=== PATIENT | male | born 1985 | race African-American/Black ===

== ENCOUNTER 2020-07-16 17:23 | Emergency (ER) | payer OTHER, SELFPAY ==
--- NOTE | 2020-07-16 17:28 | ED.GENADULT ---
HPI - General Adult General Chief complaint: Skin/Abscess/Foreign Body Stated complaint: Boil under arm Time Seen by Provider: 07/16/20 17:28 Source: patient Mode of arrival: ambulatory Limitations: no limitations History of Present Illness HPI narrative: 35-year-old male patient presents to the [facility] with complaints of a wound under the left arm for the past 3 to 4 days. Patient states he denies any fevers but states he has had some chills. Patient states that there has been some drainage from the site but does not know what color. Patient states he took 2 antibiotics this morning for pain but states he does not know what they are was given to him by his mother. Patient states he has also been taking NyQuil for pain. Related Data Allergies Allergy/AdvReac Type Severity Reaction Status Date / Time aspirin Allergy Unknown Unknown Verified 01/29/19 08:54 Review of Systems Review of Systems: Narrative: CONSTITUTIONAL: Denies fever, chills, or sweats. EYES: Denies visual changes, redness, or discharge. ENT: Denies rhinorrhea, congestion, sore throat, or otalgia. CARDIOVASCULAR: Denies chest pain, palpitations, or edema. RESPIRATORY: Denies cough or dyspnea. GASTROINTESTINAL: Denies abdominal pain, nausea, vomiting, or diarrhea. GENITOURINARY: Denies dysuria or hematuria. SKIN: Denies rash or itching. Positive wound to left underarm x3 to 4 days MUSCULOSKELETAL: Denies back pain, joint pain, or myalgia. NEUROLOGIC: Denies headache, numbness, or weakness. PSYCHIATRIC: Denies anxiety or depression. [facility] Past Medical History Medical History (Updated 07/16/20 @ 18:07 by ELTON Lopez) Asthma Musculoskeletal disorder Broken right middle finger ronnie placed Pneumonia Seizures Social History Social History Smoking status: Current every day smoker Alcohol intake: current Comments At the time of my signature I agree with nursing past medical history, surgical, social, and family history. There is no relevant family history pertinent to the presenting complaint. Exam Narrative: Exam Narrative: GENERAL: Well-appearing, well-nourished, and in no acute distress. HEAD: Normocephalic, atraumatic. EYES: PERRLA and EOMI. ENT: Nares clear, no rhinorrhea or epistaxis. Mucous membranes moist. NECK: Supple. No lymphadenopathy CHEST: Clear to auscultation. No respiratory distress. HEART: Regular rate and rhythm. No murmur heard. Normal peripheral pulses. ABDOMEN: Soft, nontender, nondistended, normal active bowel sounds. EXTREMITIES: Normal range of motion. No edema. SKIN: Warm, dry, no rash. Patient has small 0.5 x 0.5 cm open area with dried drainage present under the left axilla. There is some slight surrounding erythema and slight swelling present. No warmth noted. NEURO: No focal deficits. Alert and oriented x3. Course Vital Signs Vital signs: Vital Signs Temperature 36.2 C L 07/16/20 17:39 Pulse Rate 84 07/16/20 17:39 Respiratory Rate 18 07/16/20 17:39 Blood Pressure 119/83 07/16/20 17:39 Pulse Oximetry 99 07/16/20 17:39 Temperature 36.2 C L 07/16/20 17:39 Pulse Rate 84 07/16/20 17:39 Respiratory Rate 18 07/16/20 17:39 Blood Pressure 119/83 07/16/20 17:39 Pulse Oximetry 99 07/16/20 17:39 Vital signs reviewed Medical Decision Making Differential Diagnosis Differential Diagnosis: Differential diagnosis: Abscess, cellulitis, hidradenitis, laceration, puncture wound. Notify patient that it does appear that he has had an abscess under this arm but it does appear to be open and drainage right now which is good. Discussed with patient that he can continue the warm compresses that he has been using and I will go ahead and put him on an antibiotic as well as a topical antibiotic. Discussed with him he can take Tylenol or ibuprofen as needed for pain. Discussed with patient he needs to clean the area with soap and water and pat
[2020-07-16 17:39] VITALS: BP 119/83; PULSE 84; RESP 18; TEMP 36.2; O2SAT 99
== END 2020-07-16 18:09 | disposition home or self-care (01) ==
PROVIDERS: Emergency Provider Nurse Practitioner Family; PCP Internal Medicine
DX: L02.412 Cutaneous abscess of left axilla (principal); L03.112 Cellulitis of left axilla; F17.200 Nicotine dependence, unspecified, uncomplicated; J45.909 Unspecified asthma, uncomplicated
CPT/HCPCS: 99213; G0463

== ENCOUNTER 2020-08-07 13:38 | Outpatient (CLI) | payer OTHER, SELFPAY ==
[2020-08-07 14:10] LABS: Hematocrit 43.9 % (42.0-52.0); Hemoglobin 15.4 g/dL (14.0-18.0); Mean Corpuscular HGB Conc 35.1 g/dl (32-36); Mean Corpuscular Hemoglobin 31.6 pg (26-34); Mean Platelet Volume 9.9 fl (7.4-10.4); Platelet Count Result 45 k/mm3 (150-375); Red Blood Count 4.88 M/mm3 (4.6-6.20); Red Cell Distribution Width 15.7 % (11.5-14.5); White Blood Count 7.7 K/mm3 (4.5-10.0)
[2020-08-07 14:21] LABS: Alanine Aminotransferase 129 U/L (4-50); Albumin Level 4.4 g/dL (3.5-5.1); Alkaline Phosphatase 129 U/L (38-126); Anion Gap 9 mmol/L (8-16); Aspartate Amino Transferase 193 U/L (17-59); Bilirubin,Total 0.6 mg/dL (0.2-1.3); Calcium 8.7 mg/dL (8.4-10.2); Carbon Dioxide 28 mmol/L (22-30); Chloride 99 mmol/L (98-107); Cholesterol 196 mg/dL (0-200); Estimated Glomerular Filt Rate > 60; Glucose 101 mg/dL (75-110); HDL Direct 102 mg/dL; Potassium 4.3 mmol/L (3.4-5.0); Sodium 136 mmol/L (137-145); Triglycerides 75 mg/dL (<150)
[2020-08-07 14:32] LABS: LDL Cholesterol Direct 64 mg/dL
[2020-08-07 14:35] LABS: Basophils Absolute Manual 0.15 K/mm3 (0.0-0.1); Basophils Percent Manual 2 % (0-1); Lymphocytes Absolute Manual 2.77 K/mm3 (1.1-4.5); Monocytes Percent Manual 4 % (3-9); Neutrophils Percent Manual 58 % (46-73); Total Cells Counted 100
[2020-08-07 14:36] LABS: Platelet Estimate Decreased (Adequate)
[2020-08-07 15:12] LABS: Iron 86 ug/dL (49-181)
[2020-08-07 15:21] LABS: Percent Iron Saturation 31 % (20-50)
[2020-08-07 17:50] LABS: Blood Urea Nitrogen < 2 mg/dL (9-20)
== END 2020-08-07 13:39 | disposition home or self-care (01) ==
PROVIDERS: PCP Internal Medicine; Visit Provider Internal Medicine
DX: G62.1 Alcoholic polyneuropathy (principal); Z13.220 Encounter for screening for lipoid disorders; Z13.6 Encounter for screening for cardiovascular disorders; D64.9 Anemia, unspecified
CPT/HCPCS: 36415; 80053; 80061; 83540; 83550; 85025; 85055

== ENCOUNTER 2020-10-11 14:58 | Emergency (ER) | payer OTHER, SELFPAY ==
--- NOTE | ~2020-10-11 | XR_ITS ---
XR knee LT min 4V 10/11/2020 15:42 INDICATION: Left knee pain PROCEDURE: 4 views left knee COMPARISON: No prior studies for comparison. FINDINGS: Fracture, dislocation or subluxation is not identified. Mild osteoarthritis of the left kne e. The soft tissues appear within normal limits. No foreign bodies are identified. IMPRESSION: 1: NO ACUTE BONE OR JOINT ABNORMALITY IDENTIFIED. Reviewed, dictated and finalized at location A.
[2020-10-11 15:27] VITALS: BP 152/99; PULSE 95; RESP 16; TEMP 35.8; O2SAT 98
--- NOTE | 2020-10-11 15:33 | ED.LOWEXIN ---
HPI - Extremity Injury (Lower) General Chief Complaint: Extremity Injury, Lower Stated Complaint: fell left knee pain Time Seen by Provider: 10/11/20 15:33 Source: patient Mode of arrival: ambulatory Limitations: no limitations History of Present Illness HPI Narrative: Lamont Lincoln is a 35 yo male with a PMH of alcoholism who fell in his bathroom on Monday night his left knee. Knee pain rated a 10/10 since then he walks says it is very painful he has difficulty fully extending the leg without pain in the patellar tibia area. He has point pain in both the tibial plateau area as well as the lateral and medial patella and knee in general is swollen Related Data Allergies Allergy/AdvReac Type Severity Reaction Status Date / Time aspirin Allergy Mild turn purple Verified 10/11/20 15:01 Review of Systems Review of Systems: Narrative: CONSTITUTIONAL: Denies fever, chills, sweats. EYES: Denies visual changes, redness, discharge. ENT: Denies rhinorrhea, congestion, sore throat, otalgia. CARDIOVASCULAR: Denies chest pain, palpitations, edema. RESPIRATORY: Denies dyspnea, wheezing, cough GASTROINTESTINAL: Denies abdominal pain, nausea, vomiting, diarrhea. GENITOURINARY: Denies dysuria, hematuria, abnormal discharge SKIN: Denies rash or itching. NEUROLOGIC: Denies numbness, or focal weakness. PSYCHIATRIC: Denies anxiety or depression. Left knee pain after fall on Monday [facility] Past Medical History Medical History Abnormal liver enzymes Alcohol abuse Asthma Musculoskeletal disorder Broken right middle finger ronnie placed Pneumonia Seizures Social History Social History Smoking status: Current every day smoker Alcohol intake: current Gender identity (if verbalized by the patient): Male Comments At time of signature, I agree with nursing past medical, surgical, social and family history. There is no relevant family history pertinent to the presenting complaint. Exam Narrative: Exam Narrative: GENERAL: This is a well-nourished, well-developed patient, in moderate distress. HEAD: normocephalic, atraumatic. EYES: Sclera clear/white. Vision is grossly intact. EARS: External ears normal, . Hearing grossly intact. NOSE: External nose normal without nasal discharge, nares without redness, no rhinorrhea. THROAT: Mucous membranes moist, NECK: Neck supple, CARDIOVASCULAR: Regular rate and rhythm without murmurs, gallops, or rubs. RESPIRATORY: Clear to auscultation. Breath sounds equal bilaterally. No wheezes, rales, or rhonchi. GASTROINTESTINAL: Abdomen soft, non-tender, SKIN: warm, intact with no suspicious lesions or rash, good texture and turgor. NEURO: awake, alert, and oriented to person, place and time. There were no obvious focal neurologic abnormalities. Steady gait EXTREMITIES: Normal range of motion. Left knee difficulty with extension and flexion knee is significantly swollen pain is lateral and medial patella with most pain focused at the patellar tibial junction; warm skin 2+ pedal pulse BACK: Nontender without deformity Course Course Emergency Course: Patient comes to [facility] after fall in bathroom on Monday evening hitting his left knee which is bothered him since then X-ray shows No acute fracture dislocation or subluxation he has mild osteoarthritis of the left knee soft tissues appear within normal limits Placed in Neal wrap with knee immobilizer and given ibuprofen Vital Signs Vital signs: Vital Signs Temperature 96.4 F L 10/11/20 15:27 Pulse Rate 95 10/11/20 15:27 Respiratory Rate 16 10/11/20 15:27 Blood Pressure 152/99 H 10/11/20 15:27 Pulse Oximetry 98 10/11/20 15:27 Temperature 96.4 F L 10/11/20 15:27 Pulse Rate 95 10/11/20 15:27 Respiratory Rate 16 10/11/20 15:27 Blood Pressure 152/99 H 10/11/20 15:27 Pulse Oximetry 98 10/11/20 15:27 [facility] - Extrem
== END 2020-10-11 16:10 | disposition home or self-care (01) ==
PROVIDERS: Emergency Provider Nurse Practitioner; PCP Internal Medicine
DX: M25.562 Pain in left knee (principal); F17.200 Nicotine dependence, unspecified, uncomplicated; J45.909 Unspecified asthma, uncomplicated
CPT/HCPCS: 73564; 99213; G0463; L1830

== ENCOUNTER 2020-11-23 13:04 | Emergency (ER) | payer OTHER, SELFPAY ==
--- NOTE | ~2020-11-23 | XR_ITS ---
EXAMINATION: XR chest 1V portable DATE: 11/23/2020 14:50 INDICATION: Cough. Shortness of breath. COVID-19 exposure. TECHNIQUE: A single frontal view of the chest was obtained. COMPARISON: Chest 2 views 08/03/2015 FINDINGS: The chest demonstrates clear lungs without pneumonia, pleural effusion, or pneumothorax. Th e heart size is normal. IMPRESSION: 1. No acute cardiopulmonary disease. Reviewed, dictated and finalized at location A.
[2020-11-23 13:15] VITALS: BP 132/89; PULSE 112; RESP 16; TEMP 36.4; O2SAT 98
[2020-11-23 13:41] VITALS: BP 132/89
[2020-11-23 13:46] VITALS: PULSE 98; RESP 20; TEMP 36.7; O2SAT 99
--- NOTE | 2020-11-23 16:10 | ED.URI ---
HPI - URI/Sore Throat General Chief Complaint: Upper Respiratory Infection Stated Complaint: covid exposure/cough Time Seen by Provider: 11/23/20 14:38 Source: patient Mode of arrival: ambulatory Limitations: no limitations History of Present Illness HPI Narrative: This is a 35 year old male that presents to the ER for cold symptoms x 2 days. Reports cough, congestion, sore throat, nausea and vomiting. Reports worsening of his asthma. Reports a recent exposure to coronavirus. Denies fever or chest pain. Related Data Allergies Allergy/AdvReac Type Severity Reaction Status Date / Time aspirin Allergy Mild turn purple Verified 10/14/20 11:03 Review of Systems Review of Systems: Narrative: CONSTITUTIONAL: Denies fever ENT: Reports rhinorrhea, congestion, sore throat CARDIOVASCULAR: Denies chest pain RESPIRATORY: Reports cough and dyspnea. GASTROINTESTINAL: Reports nausea, vomiting All systems reviewed & are unremarkable except as noted in HPI and below PMFSH Past Medical History Medical History Abnormal liver enzymes Alcohol abuse Asthma Musculoskeletal disorder Broken right middle finger ronnie placed Pneumonia Seizures Social History Social History Smoking status: Current every day smoker Alcohol intake: current Gender identity (if verbalized by the patient): Male Exam Narrative: Exam Narrative: GENERAL: Well-appearing, well-nourished, and in no acute distress. HEAD: Normocephalic, atraumatic. EYES: EOMI. ENT: Nares clear, no rhinorrhea or epistaxis. Mucous membranes moist. Oropharynx without tonsillar hypertrophy exudate or other lesions. Bilateral TMs pearly call non-bulging NECK: Supple. No adenopathy or masses. CHEST: Clear to auscultation. No respiratory distress. No wheezes rales or rhonchi HEART: Regular rate and rhythm. No murmur heard. Normal peripheral pulses. EXTREMITIES: Normal range of motion. No edema. SKIN: Warm, dry, no rash. NEURO: No focal deficits. Alert and oriented x3. PSYCH: Normal mood and affect Course Vital Signs Vital signs: Vital Signs Temperature 97.5 F L 11/23/20 13:15 Pulse Rate 112 H 11/23/20 13:15 Respiratory Rate 16 11/23/20 13:15 Blood Pressure 132/89 11/23/20 13:15 Pulse Oximetry 98 11/23/20 13:15 Temperature 98.1 F 11/23/20 13:46 Pulse Rate 98 11/23/20 13:46 Respiratory Rate 20 11/23/20 13:46 Blood Pressure 132/89 11/23/20 13:41 Pulse Oximetry 99 11/23/20 13:46 MDM - URI/Sore Throat MDM Narrative Medical decision making narrative: Patient presents to the emergency department for cold symptoms over the last couple of days. Noting recent exposure to Covid. He is afebrile and nontoxic-appearing. Tachycardic upon arrival, this normalized without intervention. Oxygen saturation is normal on room air. Chest x-ray is without acute findings. Influenza screen was negative. SARS-CoV-2 was sent. He is stable and felt appropriate for further outpatient evaluation. Was instructed on care of viral infection. He is to follow-up with primary care doctor. He was given warnings to return to the ER Lab Data Attestation: I reviewed the patient's lab results. Labs: Lab Results 11/23/20 Range/Units 15:00 SARS-CoV-2 RNA (RT-PCR) Pending Influenza A Screen Negative Reference Range: Negative Influenza B Screen Negative Reference Range: Negative Imaging Data Radiologist's impression: ITS Impressions Chest X-Ray 11/23/20 14:52 IMPRESSION: 1. No acute cardiopulmonary disease. Critical Care Time Critical Care Time Critical Care Time: No Discharge Plan Discharge Clinical Impression: Person under investigation for severe acute respiratory syndrome coronavirus 2 (SARS-CoV-2) inf
[2020-11-24 20:46] LABS: SARS-CoV-2 RNA PCR Positive
== END 2020-11-23 16:37 | disposition home or self-care (01) ==
PROVIDERS: Physician Assistant; Emergency Provider Family Medicine; PCP Internal Medicine
DX: U07.1 COVID-19 (principal); J45.909 Unspecified asthma, uncomplicated; F17.200 Nicotine dependence, unspecified, uncomplicated
CPT/HCPCS: 71045; 87804; 99283; C9803; U0003; U0005

== ENCOUNTER 2020-12-14 10:52 | Emergency (ER) | payer OTHER, SELFPAY ==
--- NOTE | 2020-12-14 10:55 | ED.URI ---
HPI - URI/Sore Throat General Chief Complaint: Upper Respiratory Infection Stated Complaint: COVID Test Time Seen by Provider: 12/14/20 11:12 Source: patient and RN notes reviewed Mode of arrival: ambulatory Limitations: no limitations History of Present Illness HPI Narrative: 35-year-old male with history of asthma presents with concern for ongoing symptoms after being diagnosed with Covid. Reports he was diagnosed with Covid on November 23. Reports at that time he had dizziness and nausea. Reports since then he has developed cough, sinus congestion, body aches. Reports 2-week history of cough and sinus congestion. Reports he last used his albuterol inhaler about an hour ago. He denies any other [id number] interventions. He denies fever, chills, sweats, shortness of breath. MD elicited complaint: cough Related Data Allergies Allergy/AdvReac Type Severity Reaction Status Date / Time aspirin Allergy Mild turn purple Verified 12/14/20 11:06 Review of Systems Review of Systems: Narrative: CONSTITUTIONAL: Denies malaise, chills, sweats, or fever. EYES: Denies visual changes, redness, or discharge. ENT: Reports rhinorrhea, congestion. Denies sinus pain, otalgia and sore throat. CARDIOVASCULAR: Denies chest pain, palpitations, or edema. RESPIRATORY: Reports cough. Denies dyspnea. GASTROINTESTINAL: Denies abdominal pain, nausea, vomiting, diarrhea SKIN: Denies rash or itching. MUSCULOSKELETAL: Reports myalgia. NEUROLOGIC: Denies headache. All systems reviewed & are unremarkable except as noted in HPI and below PMFSH Past Medical History Medical History Abnormal liver enzymes Alcohol abuse Asthma Musculoskeletal disorder Broken right middle finger ronnie placed Pneumonia Seizures Social History Social History Smoking status: Current every day smoker Alcohol intake: current Gender identity (if verbalized by the patient): Male Comments At time of signature, agree with nursing past medical, surgical, social and family history. There is no relevant family history pertinent to the presenting complaint Exam Narrative: Exam Narrative: GENERAL: Well-appearing, well-nourished, and in no acute distress. HEAD: Normocephalic EYES: PERRLA, conjunctivae clear ENT: Nares clear, turbinates edematous and erythematous, purulent discharge. Mucous membranes moist. TM pearly call with dull light reflex bilaterally; no tragal tenderness. Oropharynx erythematous without lesions. Tonsils not enlarged and without exudate, no drooling, no hoarseness, no trismus, uvula midline. NECK: Supple. No lymphadenopathy CHEST: Clear to auscultation, breath sounds equal. Expiratory wheeze throughout. No rhonchi, rales, or stridor. No respiratory distress, speaks in full sentences. HEART: Regular rate and rhythm. No murmur heard. SKIN: Warm, dry, no rash. NEURO: Alert and oriented x3. PSYCH: Normal mood and affect Course Course Emergency Course: Patient is aware of diagnosis, understands and agrees to treatment plan. Anticipatory guidance given. Patient agrees to follow-up as directed and is aware of reasons to seek care at the emergency department. Portions of this record may have been created with voice recognition software Vital Signs Vital signs: Vital Signs Temperature 97.9 F 12/14/20 11:01 Pulse Rate 69 12/14/20 11:01 Respiratory Rate 18 12/14/20 11:01 Blood Pressure 124/77 12/14/20 11:01 Pulse Oximetry 98 12/14/20 11:01 Temperature 97.9 F 12/14/20 11:01 Pulse Rate 69 12/14/20 11:01 Respiratory Rate 18 12/14/20 11:01 Blood Pressure 124/77 12/14/20 11:01 Pulse Oximetry 98 12/14/20 11:01 Reviewed. MDM - URI/Sore Throat MDM Narrative Medical decision making narrative: Differential diagnosis considered: Levy virus, strep pharyngitis, allergic rhinitis, upper respiratory tract infection, sinus
[2020-12-14 11:01] VITALS: BP 124/77; PULSE 69; RESP 18; TEMP 36.6; O2SAT 98
== END 2020-12-14 11:26 | disposition home or self-care (01) ==
PROVIDERS: Emergency Provider Nurse Practitioner; PCP Internal Medicine
DX: J32.9 Chronic sinusitis, unspecified (principal); J40 Bronchitis, not specified as acute or chronic; Z86.16 Personal history of COVID-19
CPT/HCPCS: 99213; G0463

== ENCOUNTER 2021-01-16 22:50 | Emergency (ER) | payer OTHER, SELFPAY ==
--- NOTE | ~2021-01-16 | XR_ITS ---
EXAMINATION: XR chest 2V DATE: 01/16/2021 23:36 INDICATION: Shortness of breath TECHNIQUE: PA and lateral views of the chest are obtained. COMPARISON: 11/23/2020 FINDINGS: The lungs are free of acute opacities. There is no pleural effusion or pneumothorax. The ca rdiomediastinal silhouette is normal. The visualized bones and soft tissues are unremarkable. IMPRESSION: 1. No acute cardiopulmonary abnormality. Reviewed, dictated and finalized at location A.
[2021-01-16 22:48] VITALS: BP 135/90; PULSE 96; RESP 16; TEMP 36.9; O2SAT 97
--- NOTE | 2021-01-16 22:52 | ECG_ITS ---
Measurements Intervals [place] Rate: 90 P: 55 AL: 160 QRS: 67 QRSD: 88 T: 74 QT: 340 QTc: 417 Interpretive Statements SINUS RHYTHM NORMAL ECG Electronically Signed On 01-18-2021 11:44:48 CDT by Polo De Jesus D.O.
[2021-01-16 23:31] LABS: Basophils Absolute Auto 0.1 K/mm3 (0.0-0.1); Eosinophils Absolute Auto 0.2 K/mm3 (0-0.3); Hematocrit 44.3 % (42.0-52.0); Hemoglobin 15.1 g/dL (14.0-18.0); Immature Granulocyte Absolute 0.02 K/mm3 (0.00-0.031); Immature Granulocyte Percent A 0.2 % (0-0.5); Lymphocytes Absolute Auto 2.38 K/mm3 (0.9-3.2); Lymphocytes Percent Auto 28.4 % (18.3-44.2); Mean Corpuscular HGB Conc 34.1 g/dl (32-36); Mean Corpuscular Hemoglobin 33.6 pg (26-34); Mean Corpuscular Volume 98.7 fl (80-100); Mean Platelet Volume 11.8 fl (7.4-10.4); Monocytes Absolute Auto 0.5 K/mm3 (0.1-0.6); Monocytes Percent Auto 5.6 % (2.6-8.5); Neutrophils Absolute Auto 5.3 K/mm3 (1.3-6.7); Neutrophils Percent Auto 62.8 % (45.5-73.1); Platelet Count Result 52 k/mm3 (150-375); Red Blood Count 4.49 M/mm3 (4.6-6.20); Red Cell Distribution Width 15.1 % (11.5-14.5); White Blood Count 8.4 K/mm3 (4.5-10.0)
[2021-01-16 23:41] LABS: Alanine Aminotransferase 30 U/L (4-50); Albumin Level 4.1 g/dL (3.5-5.1); Alkaline Phosphatase 104 U/L (38-126); Anion Gap 14 mmol/L (8-16); Aspartate Amino Transferase 44 U/L (17-59); Bilirubin,Total 0.5 mg/dL (0.2-1.3); Blood Urea Nitrogen 3 mg/dL (9-20); Calcium 9.1 mg/dL (8.4-10.2); Carbon Dioxide 23 mmol/L (22-30); Chloride 104 mmol/L (98-107); Estimated CRCL calculation 165 ml/min; Estimated Glomerular Filt Rate > 60; Glucose 94 mg/dL (75-110); Lipase 309 U/L (23-300); Potassium 3.6 mmol/L (3.4-5.0); Sodium 141 mmol/L (137-145)
[2021-01-16] MEDS: ONDANSETRON HCL ODT 4 MG TABLET (23:55)
[2021-01-16 23:57] LABS: Troponin I < 0.012 ng/mL (0.000-0.034)
--- NOTE | 2021-01-17 01:09 | ED.GENADULT ---
HPI - General Adult General Chief complaint: Arrhythmia/Palpitations Stated complaint: palpatations Time Seen by Provider: 01/16/21 22:51 History of Present Illness HPI narrative: Patient is a 36-year-old male who presents ER with chest pain. Reports it starts in his epigastrium and goes towards his chest. He cannot characterize the pain or describe any aggravating or alleviating factors. He has no complaints of palpitations for me. He has been drinking and is not wanting to participate with the history. Related Data Allergies Allergy/AdvReac Type Severity Reaction Status Date / Time aspirin Allergy Mild turn purple Verified 12/14/20 11:06 Review of Systems Review of Systems: All systems reviewed & are unremarkable except as noted in HPI and below Cardiovascular: Cardiovascular: Denies chest pain, Denies rapid heart rate and Denies radiating jaw, neck or arm pain Respiratory: Respiratory: Denies cough and Denies dyspnea Gastrointestinal: Gastrointestinal: Reports abdominal pain, Denies nausea and Denies vomiting Genitourinary: Genitourinary: Denies dysuria and Denies urinary frequency PMFSH Past Medical History Medical History (Updated 01/17/21 @ 01:14 by Tyrel Cormier MD) Abnormal liver enzymes Alcohol abuse Asthma COVID-19 Musculoskeletal disorder Broken right middle finger ronnie placed Pneumonia Seizures Social History Social History Smoking status: Current every day smoker Alcohol intake: current Gender identity (if verbalized by the patient): Male Exam Narrative: Exam Narrative: GENERAL: Intoxicated-appearing, well-nourished, and in no acute distress. HEAD: Normocephalic, atraumatic. ENT: Mucous membranes moist. CHEST: Clear to auscultation. No respiratory distress. HEART: Regular rate and rhythm. Normal peripheral pulses. ABDOMEN: Soft, nontender, nondistended. EXTREMITIES: Normal range of motion. No edema. SKIN: Warm, dry, no rash. NEURO: Alert and oriented x3. PSYCH: Normal mood and affect. Course Course Emergency Course: Patient feels improved. Evaluation unremarkable. Ambulates with steady gait. Has a ride home. Discharge home. Vital Signs Vital signs: Vital Signs Temperature 98.4 F 01/16/21 22:48 Pulse Rate 96 01/16/21 22:48 Respiratory Rate 16 01/16/21 22:48 Blood Pressure 135/90 01/16/21 22:48 Pulse Oximetry 97 01/16/21 22:48 Temperature 98.4 F 01/16/21 22:48 Pulse Rate 96 01/16/21 22:48 Respiratory Rate 16 01/16/21 22:48 Blood Pressure 135/90 01/16/21 22:48 Pulse Oximetry 97 01/16/21 22:48 Medical Decision Making Vital Signs Vital Signs: Vital Signs Temperature 98.4 F 01/16/21 22:48 Pulse Rate 96 01/16/21 22:48 Respiratory Rate 16 01/16/21 22:48 Blood Pressure 135/90 01/16/21 22:48 Pulse Oximetry 97 01/16/21 22:48 Temperature 98.4 F 01/16/21 22:48 Pulse Rate 96 01/16/21 22:48 Respiratory Rate 16 01/16/21 22:48 Blood Pressure 135/90 01/16/21 22:48 Pulse Oximetry 97 01/16/21 22:48 Lab Data Result diagrams: 01/16/21 23:21 01/16/21 23:21 Labs: Lab Results 01/16/21 01/16/21 01/16/21 Range/Units 23:21 23:21 23:21 WBC 8.4 (4.5-10.0) K/mm3 RBC 4.49 L (4.6-6.20) M/mm3 Hgb 15.1 (14.0-18.0) g/dL Hct 44.3 (42.0-52.0) % MCV 98.7 (80-100) fl MCH 33.6 (26-34) pg MCHC 34.1 (32-36) g/dl RDW 15.1 H (11.5-14.5) % Plt Count 52 L (150-375) k/mm3 MPV 11.8 H (7.4-10.4) fl Immature Gran % (Auto) 0.2 (0-0.5) % Neut % (Auto) 62.8 (45.5-73.1) % Lymph % (Auto) 28.4 (18.3-44.2) % Turner % (Auto) 5.6 (2.6-8.5) % Eos % (Auto) 2.0 (0-4.4) % Baso % (Auto) 1.0 (0.2-1.2) % Lymph # (Auto) 2.38 (0.9-3.2) K/mm3 Turner # (Auto) 0.5 (0.1-0.6) K/mm3 Eos # (Auto) 0.2 (0-0.3) K/mm3 Baso # (Auto) 0.1 (0.0-0.1) K/mm3 Abs Immat Gran (a
--- NOTE | 2021-01-17 01:13 | PC.NURSE ---
pt ambulated around room without diff. notified.
[2021-01-17 01:14] VITALS: BP 126/85; PULSE 81; RESP 16; TEMP 36.8; O2SAT 98
== END 2021-01-17 01:34 | disposition home or self-care (01) ==
PROVIDERS: Emergency Provider Emergency Medicine; PCP Internal Medicine
DX: R10.13 Epigastric pain (principal); J45.909 Unspecified asthma, uncomplicated; Z86.16 Personal history of COVID-19; Z87.01 Personal history of pneumonia (recurrent); F17.200 Nicotine dependence, unspecified, uncomplicated
CPT/HCPCS: 36415; 71046; 80053; 83690; 84484; 85025; 93005; 96374; 99284; A9270

== ENCOUNTER 2021-05-31 21:16 | Emergency (ER) | payer SELFPAY ==
[2021-05-31] VITALS (14 sets, daily range): BP systolic 114–125; BP diastolic 85–98; PULSE 73–89; RESP 16–23; TEMP 36.9; O2SAT 95–99
--- NOTE | ~2021-05-31 | CT_ITS ---
EXAMINATION: CT abdomen pelvis w con DATE: 05/31/2021 22:43 INDICATION: Abdominal pain. Hematochezia, hemoptysis. History of asthma. TECHNIQUE: Computed tomography (CT) of the abdomen and pelvis was performed with 100 cc Omnipaque 350 intravenous contrast. Automated exposure control and iterative reconstruction technique were employe d. Exam dose: 409.21 mGy-cm total exam DLP. COMPARISON: 01/11/2016 MRI abdomen 12/17/2015 complete abdominal ultrasound FINDINGS: The lung bases are clear of infiltrate or consolidation. Normal heart size. No pericardial or pleural effusion. There is diffuse hepatic steatosis. No hepatic space-occupying mass lesion is evident. Normal splenic size. No pancreatic mass lesion or calcification or ductal dilatation. No bile duct dilatation. There is sludge and/or multiple small gallstones in the dependent aspect of the gallbladder; consider gallbladder ultrasound for more definitive evaluation. No gallbladder wall thickening or pericholecy stic fluid or fat stranding. Normal morphology of the adrenal glands. No renal mass lesion or urinary tract calculus or hydrourete ronephrosis. The urinary bladder is unremarkable. Normal caliber of the abdominal aorta. No intraperitoneal or retroperitoneal or pelvic mass lesion or adenopathy or ascites. Normal appendix. There is nonspecific thickening and fatty infiltration of the wall of the rectum and portions of the colon, which may be consistent with active and/or past colitis. No bowel obstruction is evident. No p neumatosis or intraperitoneal free air. Included skeletal structures are unremarkable. IMPRESSION: Diffuse hepatic steatosis Suspected cholelithiasis; consider gallbladder ultrasound Nonspecific thickening of fatty infiltration of the wall of the rectum and portions of the colon sugg esting active and/or prior colitis Reviewed, dictated and finalized at Location A. Reviewed, dictated and finalized at location A. IMPRESSION: Diffuse hepatic steatosis Suspected cholelithiasis; consider gallbladder ultrasound Nonspecific thickening of fatty infiltration of the wall of the rectum and port ions of the colon suggesting active and/or prior colitis
--- NOTE | ~2021-05-31 | XR_ITS ---
XR chest 1V portable DATE: 05/31/2021 21:50 INDICATION: Bloody emesis. Asthma. Bloody stools. TECHNIQUE: Portable upright AP chest on 05/31/2021 at 2139 hours COMPARISON: 01/16/2021 PA and lateral chest FINDINGS: Normal heart size. No hilar or mediastinal enlargement. No pulmonary infiltrate or consolid ation, pleural effusion or pulmonary vascular congestion or pneumothorax. IMPRESSION: No active cardiopulmonary disease Reviewed, dictated and finalized at location A.
--- NOTE | 2021-05-31 21:36 | ECG_ITS ---
Measurements Intervals [place] Rate: 85 P: 55 SD: 154 QRS: 58 QRSD: 93 T: 62 QT: 363 QTc: 433 Interpretive Statements SINUS RHYTHM BASELINE ARTIFACT- II, V1, V3-V6 NORMAL ECG Electronically Signed On 06-01-2021 6:13:29 CDT by Polo De Jesus D.O.
[2021-05-31 21:46] LABS: Basophils Absolute Auto 0.2 K/mm3 (0.0-0.1); Basophils Percent Auto 1.9 % (0.2-1.2); Eosinophils Absolute Auto 0.2 K/mm3 (0-0.3); Eosinophils Percent Auto 2.4 % (0-4.4); Hematocrit 42.1 % (42.0-52.0); Hemoglobin 14.7 g/dL (14.0-18.0); Immature Granulocyte Absolute 0.02 K/mm3 (0.00-0.031); Immature Granulocyte Percent A 0.2 % (0-0.5); Immature Platelet Fraction Pct 11.2 % (0.9-11.2); Lymphocytes Absolute Auto 3.13 K/mm3 (0.9-3.2); Mean Corpuscular HGB Conc 34.9 g/dl (32-36); Mean Corpuscular Hemoglobin 33.4 pg (26-34); Mean Corpuscular Volume 95.7 fl (80-100); Monocytes Absolute Auto 0.4 K/mm3 (0.1-0.6); Monocytes Percent Auto 5.5 % (2.6-8.5); Neutrophils Absolute Auto 4.1 K/mm3 (1.3-6.7); Platelet Count Result 73 k/mm3 (150-375); Red Cell Distribution Width 14.3 % (11.5-14.5)
[2021-05-31] MEDS: PANTOPRAZOLE SODIUM IV 40 MG VIAL IV PUSH (21:51)
[2021-05-31] MEDS: SODIUM CHLORIDE 0.9% IV 1,000 ML 999 ML IV CONT (21:52)
[2021-05-31 21:57] LABS: Alanine Aminotransferase 45 U/L (4-50); Albumin Level 4.2 g/dL (3.5-5.1); Alkaline Phosphatase 137 U/L (38-126); Anion Gap 12 mmol/L (8-16); Aspartate Amino Transferase 97 U/L (17-59); Bilirubin,Total 0.4 mg/dL (0.2-1.3); Blood Urea Nitrogen 4 mg/dL (9-20); Calcium 8.8 mg/dL (8.4-10.2); Carbon Dioxide 25 mmol/L (22-30); Chloride 106 mmol/L (98-107); Estimated CRCL calculation 163 ml/min; Estimated Glomerular Filt Rate > 60; Glucose 131 mg/dL (65-110); Lipase 316 U/L (23-300); Magnesium 1.8 mg/dL (1.6-2.3); Potassium 4.3 mmol/L (3.4-5.0); Sodium 143 mmol/L (137-145)
[2021-05-31 22:12] LABS: Ethanol 538 mg/dL (<10)
[2021-05-31 22:16] LABS: INR 1.1
[2021-05-31 22:17] LABS: Partial Thromboplastin Time 36.2 SECONDS (22.3-36.8)
[2021-05-31 22:36] LABS: Add Urine Microscopic? YES; Amorphous Sediment Urine Few; Appearance Urine Clear (Clear); Bilirubin Urine Negative (Negative); Blood Urine Negative (Negative); Color Urine Yellow (Yellow); Glucose Urine UA Negative (Negative); Ketones Urine Negative (Negative); Leukocyte Esterase Ur Negative LEU/UL (Negative); Nitrate Urine Negative (Negative); Protein Urine 1+ mg/dL (Negative); RBC Urine 0-2 /hpf (0-2); Specific Grav Ur 1.009 (1.001-1.035); Squamous Epithelial Cell Urine Rare /hpf (Few); Urobilinogen Urine Negative mg/dL (<2.0); WBC Urine 0-3 /hpf
--- NOTE | 2021-07-12 10:24 | ED.GIBLEED ---
HPI - GI Bleed General Chief complaint: GI Bleed Stated complaint: bloody urine, emesis, and stool x 2 weeks Time Seen by Provider: 05/31/21 21:26 Source: patient Mode of arrival: EMS Limitations: no limitations History of Present Illness HPI Narrative: 36 year old male, intoxicated complains of bloody stool, bloody emesis and hematuria for 2 weeks. Arrives intoxicated, no other complaints. Pulse 89 BP 125/89; last vomited [employer]. Also complains of upper abdominal pain worse with eating or drinking, sharp, constant, non-radiating. Improves with nothing. Context: history of GI bleed, liver disease and alcohol abuse Associated symptoms: abdominal pain, vomiting and other bleeding Related Data Allergies Allergy/AdvReac Type Severity Reaction Status Date / Time aspirin Allergy Mild turn purple Verified 12/14/20 11:06 Review of Systems Constitutional: Constitutional: Reports as per HPI and Reports no additional constitutional complaints Eyes: Eyes: Reports as per HPI and Reports no additional eye complaints ENT: Reports system reviewed and no additional complaints, except as documented Gastrointestinal: Gastrointestinal: Reports abdominal pain, Reports hematochezia, Reports coffee ground emesis, Reports dysphagia and Reports nausea Genitourinary: Genitourinary: Reports hematuria Musculoskeletal: Musculoskeletal: Reports abnormal gait Integumentary/Breasts: Skin/Breast: Reports system reviewed and no additional complaints, except as docu Neurologic: Reports system reviewed and no additional complaints, except as documented Psychiatric: Psychiatric: Reports no additional psychiatric complaints Endocrine: Endocrine: Reports no additional endocrine complaints Hematologic/Lymphatic: Hematologic/Lymphatic: Reports no additional hematologic/lymphatic complaints [facility] Past Medical History Medical History Abnormal liver enzymes Alcohol abuse Asthma COVID-19 Musculoskeletal disorder Broken right middle finger ronnie placed Pneumonia Seizures Social History Social History Smoking status: Current every day smoker Alcohol intake: current Substance use type: does not use Gender identity (if verbalized by the patient): Male Course Course Emergency Course: Patient with thrombocytopenia, otherwise normal labs with history of ETOH abuse, alcohol level elevated. Patient does have someone to pick him up and will be discharged home. Patient to return if vomiting, inability to tolerate fluids or medications, abdominal pain or any concern. All questions answered. Vital Signs Vital signs: Vital Signs Temperature 36.9 C 05/31/21 21:19 Pulse Rate 89 05/31/21 21:19 Respiratory Rate 16 05/31/21 21:19 Blood Pressure 125/98 H 05/31/21 21:19 Pulse Oximetry 98 05/31/21 21:19 Temperature 36.9 C 05/31/21 21:19 Pulse Rate 73 05/31/21 23:01 Respiratory Rate 20 05/31/21 22:48 Blood Pressure 114/85 05/31/21 23:00 Pulse Oximetry 95 05/31/21 22:47 MDM - GI Bleed MDM Narrative Medical decision making narrative: Hemoglobin normal, hemeoccult negative patient with no vomiting in ED, oropharynx clear; coags normal, no RBCs in urine. Patient intoxicated, CT abd/pelvis with fatty liver no other abnormality and cholelithiasis without gallbladder wall or CBD thickening. WBC normal, afebrile, unlikely acute cholecystitis. Patient not acidotic, received IVF in ED; no vomiting, tolerating PO, abdominal pain improved. Differential Diagnosis Differential diagnosis: Likely esophageal varices, gastritis, Upper gastrointestinal hemorrhage, Lower gastrointestinal hemorrhage and other (acute alcohol intoxication, pancreatitis, dehydration) Medical Records Attestation: I reviewed the patient's medical records. Lab Data Attestation: I reviewed the patient's lab results. Result diagrams: 05/31/21 21:30
== END 2021-06-01 00:10 | disposition home or self-care (01) ==
PROVIDERS: Emergency Provider Emergency Medicine; PCP Internal Medicine
DX: K70.0 Alcoholic fatty liver (principal); F10.10 Alcohol abuse, uncomplicated; Y90.8 Blood alcohol level of 240 mg/100 ml or more; K80.20 Calculus of gallbladder without cholecystitis without obstruction; D69.6 Thrombocytopenia, unspecified; J45.909 Unspecified asthma, uncomplicated; Z86.16 Personal history of COVID-19; Z87.01 Personal history of pneumonia (recurrent); F17.200 Nicotine dependence, unspecified, uncomplicated
CPT/HCPCS: 36415; 71045; 74177; 80053; 80307; 81001; 83690; 83735; 85025; 85055; 85610; 85730; 93005; 96361; 96374; 99284; C9113; J7030; Q9967

== ENCOUNTER 2021-06-01 17:40 | Emergency (ER) | payer SELFPAY ==
[2021-06-01 17:45] VITALS: BP 103/66; PULSE 66; RESP 16; TEMP 36.2; O2SAT 98
--- NOTE | 2021-06-01 18:18 | PC.NURSE ---
pt. refusing tx. pt. wishes to go home. pt. parent and sister here to administrative support specialist patient. pt. released into care of parent.
== END 2021-06-01 18:18 | disposition left against medical advice (07) ==
PROVIDERS: PCP Internal Medicine
DX: R44.3 Hallucinations, unspecified (principal)
CPT/HCPCS: 99199

== ENCOUNTER 2021-06-01 21:54 | Emergency (ER) | payer MEDICAID, SELFPAY ==
[2021-06-01 22:05] VITALS: BP 122/87; PULSE 63; RESP 18; TEMP 36.2; O2SAT 100
[2021-06-02 00:15] VITALS: BP 121/88; PULSE 62; RESP 17; O2SAT 100
[2021-06-02 01:44] VITALS: BP 131/81; PULSE 59; RESP 18; O2SAT 98
[2021-06-02] MEDS: FOLIC ACID 1 MG/0.2 ML INJ IV PUSH (01:44)
[2021-06-02] MEDS: THIAMINE HCL 200 MG/2 ML VIAL 100 MG IV PUSH (01:44)
--- NOTE | 2021-06-02 01:55 | ED.GENADULT ---
HPI - General Adult General Chief complaint: Psychiatric Symptoms Stated complaint: dizzy, N/V/D, hallucinations Time Seen by Provider: 06/01/21 23:52 Source: patient and family Mode of arrival: ambulatory Limitations: intoxication History of Present Illness HPI narrative: 36-year-old male for acute alcohol intoxication brought in by girlfriend for continued slurred speech, sometimes hallucinations, nausea, etc. Patient himself has no complaints denies nausea, denies hallucinations denies drinking alcohol. Spoke at length with patient and family regarding high alcohol of over 0.5 yesterday. Patient still insists he only has 2 beers a day. Patient states he does feel unsteady on his feet and not well. Related Data Allergies Allergy/AdvReac Type Severity Reaction Status Date / Time aspirin Allergy Mild turn purple Verified 12/14/20 11:06 Review of Systems Review of Systems: CONSTITUTIONAL: no fever, no weight loss, positive confusion EYES: no vision changes, no eye pain ENT: no rhinorrhea, no sore throat, no difficulty swallowing CARDIOVASCULAR: no chest pain, no leg edema, no palpitations RESPIRATORY: no cough, no shortness of breath, no hemoptysis GASTROINTESTINAL: no abdominal pain, positive nausea, no vomiting, no diarrhea GENITOURINARY: no flank pain, no dysuria, no hematuria SKIN: no rash, no jaundice MUSCULOSKELETAL: no back pain, no trauma. NEUROLOGIC: No headache, positive dizziness, no focal weakness PSYCHIATRIC: denies hallucinations, no suicidal ideation [facility] Past Medical History Medical History Abnormal liver enzymes Alcohol abuse Asthma COVID-19 Musculoskeletal disorder Broken right middle finger ronnie placed Pneumonia Seizures Social History Social History Smoking status: Current every day smoker Alcohol intake: current Substance use type: does not use Gender identity (if verbalized by the patient): Male Exam Narrative: General: alert, afebrile, answering all questions, intoxicated Head: normocephalic, atraumatic Eyes: EOMI bilaterally, anicteric, discharge from eyes B ENT: moist mucous membranes, oropharynx patent, no rhinorrhea Neck: supple, trachea midline, no JVD Chest: equal chest rise bilaterally, no chest wall trauma noted Lungs: clear to auscultation bilaterally, respirations unlabored CV: regular rate, no MAZIN B, calf size equal bilaterally Abd: distended, non-tender, no rebound, no gaurding : no CVA tenderness B, bladder non-distended EXT: no deformity noted, moving all extremities equally Skin: warm, dry, no pallor Neuro: alert, oriented x 3; CN 2-12 grossly intact, no dysarthria Psych: affect appropriate, though content normal Course Course Emergency Course: Although patient had a full psychiatric workup yesterday patient returns today complaining of loose nausea vomiting still denies drinking more than 2 beers daily. Tried to explain to family need to stop drinking. Family states she thinks something else. Will check ammonia electrolytes CBC and CMP and give folic acid as well as thiamine and reassess Reevaluation(s) Reevaluation #1: Ambulating with steady gait, no altered mental status, no vomiting in the ED. Abdomen soft tolerating p.o. afebrile. No focal neuro deficits. Date: 06/02/21 Time: 04:00 Vital Signs Vital signs: Vital Signs Temperature 36.2 C L 06/01/21 22:05 Pulse Rate 63 06/01/21 22:05 Respiratory Rate 18 06/01/21 22:05 Blood Pressure 122/87 06/01/21 22:05 Pulse Oximetry 100 06/01/21 22:05 Temperature 36.2 C L 06/01/21 22:05 Pulse Rate 60 06/02/21 04:10 Respiratory Rate 17 06/02/21 04:10 Blood Pressure 122/81 06/02/21 04:10 Pulse Oximetry 98 06/02/21 04:10 Medical Decision Making [facility] Narrative Medical decision making narrative: All labs are normal, for patient except for AST, and low platelets at 104. Discu
--- NOTE | 2021-06-02 02:50 | PC.NURSE ---
called lab to ask where results are, states 'not sure, have to look for the tubes'.
[2021-06-02 03:15] VITALS: BP 127/84; PULSE 64; RESP 18; O2SAT 97
[2021-06-02 03:28] LABS: Basophils Absolute Auto 0.1 K/mm3 (0.0-0.1); Basophils Percent Auto 1.4 % (0.2-1.2); Eosinophils Absolute Auto 0.2 K/mm3 (0-0.3); Eosinophils Percent Auto 2.5 % (0-4.4); Hemoglobin 13.1 g/dL (14.0-18.0); Immature Granulocyte Absolute 0.02 K/mm3 (0.00-0.031); Immature Granulocyte Percent A 0.3 % (0-0.5); Lymphocytes Percent Auto 44.7 % (18.3-44.2); Mean Corpuscular HGB Conc 35.4 g/dl (32-36); Mean Corpuscular Hemoglobin 33.9 pg (26-34); Mean Corpuscular Volume 95.9 fl (80-100); Mean Platelet Volume 11.9 fl (7.4-10.4); Monocytes Absolute Auto 0.3 K/mm3 (0.1-0.6); Monocytes Percent Auto 4.3 % (2.6-8.5); Neutrophils Percent Auto 46.8 % (45.5-73.1); Platelet Count Result 104 k/mm3 (150-375); Red Blood Count 3.86 M/mm3 (4.6-6.20); Red Cell Distribution Width 14.6 % (11.5-14.5); White Blood Count 6.5 K/mm3 (4.5-10.0)
[2021-06-02 03:42] LABS: INR 1.1; Prothrombin Time 14.1 Seconds (11.1-14.7)
[2021-06-02 03:43] LABS: Partial Thromboplastin Time 39.4 SECONDS (22.3-36.8)
[2021-06-02 04:10] VITALS: BP 122/81; PULSE 60; RESP 17; O2SAT 98
[2021-06-02 04:23] LABS: Alanine Aminotransferase 36 U/L (4-50); Albumin Level 3.9 g/dL (3.5-5.1); Alkaline Phosphatase 116 U/L (38-126); Anion Gap 11 mmol/L (8-16); Aspartate Amino Transferase 62 U/L (17-59); Bilirubin,Total 0.5 mg/dL (0.2-1.3); Calcium 8.5 mg/dL (8.4-10.2); Carbon Dioxide 25 mmol/L (22-30); Chloride 109 mmol/L (98-107); Estimated CRCL calculation 236 ml/min; Estimated Glomerular Filt Rate > 60; Glucose 99 mg/dL (65-110); Lipase 123 U/L (23-300); Magnesium 2.1 mg/dL (1.6-2.3); Potassium 3.9 mmol/L (3.4-5.0); Sodium 145 mmol/L (137-145)
[2021-06-02 04:26] LABS: Ammonia < 9 umol/L (9-30)
[2021-06-02 04:46] LABS: Blood Urea Nitrogen < 2 mg/dL (9-20)
== END 2021-06-02 04:45 | disposition home or self-care (01) ==
PROVIDERS: Emergency Provider Emergency Medicine; PCP Internal Medicine
DX: F10.10 Alcohol abuse, uncomplicated (principal); F17.210 Nicotine dependence, cigarettes, uncomplicated; J45.909 Unspecified asthma, uncomplicated; Z86.16 Personal history of COVID-19
CPT/HCPCS: 36415; 80053; 82140; 83690; 83735; 85025; 85610; 85730; 96365; 96375; 99284; J3411

== ENCOUNTER 2022-02-13 18:00 | Emergency (ER) | payer BC, SELFPAY ==
[2022-02-13 18:16] VITALS: BP 123/84; PULSE 78; RESP 16; TEMP 37.4; O2SAT 99
--- NOTE | 2022-02-13 18:41 | ED.SKABFB ---
HPI - Skin/Abscess/Foreign Bdy General Chief complaint: Skin/Abscess/Foreign Body Stated complaint: CYST Time Seen by Provider: 02/13/22 18:41 Source: patient and RN notes reviewed Mode of arrival: ambulatory Limitations: no limitations History of Present Illness HPI narrative: 37-year-old male presents to the [facility] with complaints of a cyst or abscess to the left axilla since Monday. Started draining today. Large quantities of green to yellow thick drainage noted. Very poor hygiene. No treatment prior to arrival. Denies fevers. Pain with movement. States he has had similar episode in the past. Onset (ago): day(s) (4) Related Data Home Medications Medication Instructions Recorded Confirmed bupropion HCl 150 mg 24 hr tablet, 1 tablet PO DAILY 02/13/22 02/13/22 extended release cetirizine 10 mg tablet 1 tablet PO DAILY 02/13/22 02/13/22 fluticasone propionate 50 1 ea intranasal DAILY 02/13/22 02/13/22 mcg/actuation nasal spray,suspension gabapentin 300 mg capsule 1 cap PO DAILY 02/13/22 02/13/22 mirtazapine 15 mg tablet 1 tablet PO DAILY 02/13/22 02/13/22 naltrexone 50 mg tablet 1 mg PO DAILY 02/13/22 02/13/22 nicotine 21 mg/24 hr daily 1 patch transdermal DAILY 02/13/22 02/13/22 transdermal patch Allergies Allergy/AdvReac Type Severity Reaction Status Date / Time aspirin Allergy Mild turn purple Verified 02/13/22 18:38 Review of Systems Review of Systems: All systems reviewed & are unremarkable except as noted in HPI and below Constitutional: Constitutional: Reports no additional constitutional complaints, Denies chills and Denies fever(s) Eyes: Eyes: Reports no additional eye complaints ENT: Reports system reviewed and no additional complaints, except as documented Cardiovascular: Cardiovascular: Reports no additional cardiovascular complaints Respiratory: Respiratory: Reports no additional respiratory complaints Gastrointestinal: Gastrointestinal: Reports no additional gastrointestinal complaints Musculoskeletal: Musculoskeletal: Reports no additional musculoskeletal complaints Integumentary/Breasts: Skin/Breast: Reports as per HPI and Reports erythema Neurologic: Reports system reviewed and no additional complaints, except as documented Psychiatric: Psychiatric: Reports no additional psychiatric complaints Allergic/Immunologic: Allergic/Immunologic: Reports no additional allergic/immunologic complaints PMFSH Past Medical History Medical History Abnormal liver enzymes Alcohol abuse Asthma COVID-19 Musculoskeletal disorder Broken right middle finger ronnie placed Pneumonia Seizures Social History Social History Smoking status: Current every day smoker Alcohol intake: current Substance use type: does not use Gender identity (if verbalized by the patient): Male Comments At the time of my signature, I reviewed and agree with the nursing past medical, surgical, social, and family history. There is no relevant family history pertinent to the patient complaint. Exam Const: General: no acute distress, well developed, alert, ill appearing chronically; not acutely, poor hygiene and uncomfortable Nutritional Appearance: well nourished and obese Orientation/consciousness: patient oriented x3 Limitations: no limitations HENMT: Head: normal to inspection Ears: external ears normal Eyes: General: appearance normal, both eyes and all related structures Pupils: Equal, round and reactive pupils present Neck: Neck: normal visual inspection, no lymphadenopathy and no meningeal signs Chest: Chest palpation & inspection: normal inspection of the chest Resp: Effort & Inspection: normal respiratory effort and no use of accessory muscles Auscultation: clear to auscultation bilaterally, no crackles, no rales, no rhonchi and no wheezes Cardio: Rate: regular rate Rhythm
[2022-02-13] MEDS: cefTRIAXone 1 GM, LIDOCAINE HCL 1% LOCAL INJ 2.1 ML IM (19:18)
== END 2022-02-13 19:43 | disposition home or self-care (01) ==
PROVIDERS: Emergency Provider Nurse Practitioner; PCP Internal Medicine
DX: L02.412 Cutaneous abscess of left axilla (principal); F17.200 Nicotine dependence, unspecified, uncomplicated; J45.909 Unspecified asthma, uncomplicated; G40.909 Epilepsy, unspecified, not intractable, without status epilepticus; Z86.16 Personal history of COVID-19
CPT/HCPCS: 87070; 87075; 87076; 87077; 87186; 87205; 96372; 99213; G0463; J0696

== ENCOUNTER 2022-04-14 16:57 | Emergency (ER) | payer BC, SELFPAY ==
--- NOTE | 2022-04-14 17:36 | ED.URI ---
HPI - URI/Sore Throat General Chief Complaint: Upper Respiratory Infection Stated Complaint: Burning in chest, cough, runny nose Time Seen by Provider: 04/14/22 17:36 Source: patient and RN notes reviewed Mode of arrival: ambulatory Limitations: no limitations History of Present Illness HPI Narrative: 37-year-old male presented for complaint of headache, body aches, sinus pressure/congestion, cough, fever/chills. Onset 3 days. One episode of vomiting yesterday. Endorses his fianc?e has similar symptoms. He smokes 1 pack/day, history of asthma. Denies shortness of breath, wheezing or chest pain. He has not taken anything for symptoms. MD elicited complaint: cough Related Data Home Medications Medication Instructions Recorded Confirmed bupropion HCl 150 mg 24 hr tablet, 1 tablet PO DAILY 02/13/22 02/13/22 extended release cetirizine 10 mg tablet 1 tablet PO DAILY 02/13/22 02/13/22 fluticasone propionate 50 1 ea intranasal DAILY 02/13/22 02/13/22 mcg/actuation nasal spray,suspension gabapentin 300 mg capsule 1 cap PO DAILY 02/13/22 02/13/22 mirtazapine 15 mg tablet 1 tablet PO DAILY 02/13/22 02/13/22 naltrexone 50 mg tablet 1 mg PO DAILY 02/13/22 02/13/22 nicotine 21 mg/24 hr daily 1 patch transdermal DAILY 02/13/22 02/13/22 transdermal patch valacyclovir 1 gram tablet mg 04/14/22 Allergies Allergy/AdvReac Type Severity Reaction Status Date / Time aspirin Allergy Mild turn purple Verified 02/13/22 18:38 Review of Systems Review of Systems: CONSTITUTIONAL: Endorses malaise, chills, sweats, fever EYES: Denies visual changes, redness, or discharge ENT: Reports rhinorrhea, congestion, sinus pain CARDIOVASCULAR: Denies chest pain, palpitations, edema RESPIRATORY: Reports cough, post nasal drainage. Denies dyspnea GASTROINTESTINAL: Denies abdominal pain MUSCULOSKELETAL: Endorses myalgia PMFSH Past Medical History Medical History Abnormal liver enzymes Alcohol abuse Asthma COVID-19 Musculoskeletal disorder Broken right middle finger ronnie placed Pneumonia Seizures Social History Social History Smoking status: Current every day smoker Alcohol intake: current Substance use type: does not use Gender identity (if verbalized by the patient): Male Exam Narrative: GENERAL: Ill-appearing, nontoxic EYES: conjunctivae clear ENT: Mucous membranes moist. TM pearly call with dull light reflex bilaterally; no tragal tenderness. Oropharynx erythematous without lesions or exudate, no drooling, no hoarseness, no trismus, uvula midline. CHEST: Clear to auscultation, breath sounds equal. No wheezing, rhonchi, rales, or stridor. No respiratory distress, speaks in full sentences. HEART: Regular rate and rhythm. No murmur heard. SKIN: Warm, dry, no rash. NEURO: Alert and oriented x3. PSYCH: Normal mood and affect Course Course Emergency Course: Patient is aware of diagnosis, understands and agrees to treatment plan. Anticipatory guidance given. Patient agrees to follow-up as directed and is aware of reasons to seek care at the emergency department. Portions of this record may have been created with voice recognition software Level of Care: Express Care Visit Vital Signs Vital signs: reviewed MDM - URI/Sore Throat MDM Narrative Medical decision making narrative: Influenza positive, COVID-negative. Results reviewed with patient. Advised supportive measures and signs/symptoms to go to the ER. Pt is appropriate for outpt treatment and f/u. Differential Diagnosis Differential diagnosis: Likely upper respiratory infection, sinusitis, viral infection and influenza Lab Data Labs: Influenza A Screen Positive Reference Range: Negative Influenza B Screen Negative Referen
== END 2022-04-14 17:50 | disposition home or self-care (01) ==
PROVIDERS: Emergency Provider Nurse Practitioner Family; PCP Internal Medicine
DX: J10.1 Influenza due to other identified influenza virus with other respiratory manifestations (principal); Z20.822 Contact with and (suspected) exposure to COVID-19; J45.909 Unspecified asthma, uncomplicated; Z86.16 Personal history of COVID-19; G40.909 Epilepsy, unspecified, not intractable, without status epilepticus; F17.200 Nicotine dependence, unspecified, uncomplicated
CPT/HCPCS: 87426; 87804; 99212; C9803; G0463

== ENCOUNTER 2022-09-27 12:12 | Emergency (ER) | payer BC, SELFPAY ==
[2022-09-27 12:21] VITALS: BP 139/91; PULSE 65; RESP 14; TEMP 36.3; O2SAT 100
[2022-09-27 12:22] VITALS: BP 139/91; PULSE 65; RESP 14; TEMP 36.3; O2SAT 100
--- NOTE | 2022-09-27 13:17 | ED.GENADULT ---
HPI - General Adult General Chief complaint: Upper Respiratory Infection Stated complaint: Sore Throat Source: patient Mode of arrival: ambulatory Limitations: no limitations History of Present Illness HPI narrative: Patient presents for evaluation of right-sided ear pain, sore throat and recent headache. Symptom onset 2 days ago. Headache has resolved. He has had hot flashes but denies objective fever. No chills, nausea, vomiting, diarrhea, cough, shortness of breath. His girlfriend and his daughter both have strep. He is not taking any medications to assist with the symptoms. He is a current everyday smoker. Related Data Home Medications Medication Instructions Recorded Confirmed cetirizine 10 mg tablet 1 tablet PO DAILY 02/13/22 02/13/22 fluticasone propionate 50 1 ea intranasal DAILY 02/13/22 02/13/22 mcg/actuation nasal spray,suspension gabapentin 300 mg capsule 1 cap PO DAILY 02/13/22 02/13/22 naltrexone 50 mg tablet 1 mg PO DAILY 02/13/22 02/13/22 nicotine 21 mg/24 hr daily 1 patch transdermal DAILY 02/13/22 02/13/22 transdermal patch valacyclovir 1 gram tablet mg 04/14/22 Allergies Allergy/AdvReac Type Severity Reaction Status Date / Time aspirin Allergy Mild turn purple Verified 09/27/22 12:21 Review of Systems Review of Systems: CONSTITUTIONAL: Reports hot flashes. Denies fever, chills, or sweats. EYES: Denies visual changes, redness, or discharge. ENT: Reports right sided otalgia and sore throat CARDIOVASCULAR: Denies chest pain, palpitations, or edema. RESPIRATORY: Denies cough or dyspnea. GASTROINTESTINAL: Denies abdominal pain, nausea, vomiting, or diarrhea. GENITOURINARY: Denies dysuria or hematuria. SKIN: Denies rash or itching. MUSCULOSKELETAL: Denies back pain, joint pain, or myalgia. NEUROLOGIC: Reports headache. Denies numbness, dizziness, or weakness. PSYCHIATRIC: Denies anxiety or depression. [facility] Past Medical History Medical History Abnormal liver enzymes Alcohol abuse Asthma COVID-19 Musculoskeletal disorder Broken right middle finger ronnie placed Pneumonia Seizures Surgical History Surgical History No pertinent past surgical history Family History Family History Mother Family history non-contributory Social History Social History Smoking status: Current every day smoker Alcohol intake: current Substance use type: does not use Living arrangements: with family Gender identity (if verbalized by the patient): Male Sexual Orientation (if Verbalized by the Patient): Straight or Heterosexual Spiritual care concerns: No Exam Narrative: GENERAL: Well-appearing, well-nourished, and in no acute distress. HEAD: Normocephalic, atraumatic. EYES: PERRLA and EOMI. ENT: Nares clear, no rhinorrhea or epistaxis. Mucous membranes moist. Posterior pharyngeal erythema without exudate. Uvula is midline.. Bilateral TMs pearly call nonbulging NECK: Supple. No adenopathy or masses. No carotid bruits or JVD CHEST: Clear to auscultation. No respiratory distress. No wheezes rales or rhonchi HEART: Regular rate and rhythm. No murmur heard. Normal peripheral pulses. ABDOMEN: Soft, nontender, nondistended, normal active bowel sounds. EXTREMITIES: Normal range of motion. No edema. SKIN: Warm, dry, no rash. NEURO: No focal deficits. Alert and oriented x3. PSYCH: Normal mood and affect. Course Course Emergency Course: This is a 37-year-old male who presented for evaluation of sore throat after recent strep exposures. Rapid strep negative. Will send sample for throat culture. Start amoxicillin due to recent exposures. Follow up with primary provider. Go to the ER for difficulty breathing or swelling. Patient in agreeme
== END 2022-09-27 12:44 | disposition home or self-care (01) ==
PROVIDERS: Emergency Provider Nurse Practitioner; PCP Internal Medicine
DX: J02.9 Acute pharyngitis, unspecified (principal)
CPT/HCPCS: 87081; 87880; 99213; G0463

== ENCOUNTER 2023-01-08 14:39 | Emergency (ER) | payer BC, SELFPAY ==
[2023-01-08 15:03] VITALS: BP 148/94; PULSE 62; RESP 20; TEMP 36.6; O2SAT 99
--- NOTE | 2023-01-08 15:13 | ED.URI ---
HPI - URI/Sore Throat General Chief Complaint: Upper Respiratory Infection Stated Complaint: Sore Throat/Sinus Time Seen by Provider: 01/08/23 15:05 Source: patient Mode of arrival: ambulatory Limitations: no limitations History of Present Illness HPI Narrative: Lamont is a 38-year-old male patient presenting to clinic today with complaints of sore throat sinus congestion times 1-2 days. He denies any known fever chills. Has had exposure to the child was strep elicited complaint: cough, sore throat and nasal congestion Related Data Home Medications Medication Instructions Recorded Confirmed cetirizine 10 mg tablet 1 tablet PO DAILY 02/13/22 01/08/23 fluticasone propionate 50 1 ea intranasal DAILY 02/13/22 01/08/23 mcg/actuation nasal spray,suspension gabapentin 300 mg capsule 1 cap PO DAILY 02/13/22 01/08/23 naltrexone 50 mg tablet 1 mg PO DAILY 02/13/22 01/08/23 valacyclovir 1 gram tablet 1,000 mg PO DIRECTED 04/14/22 01/08/23 sertraline 100 mg tablet 100 mg PO DAILY 01/08/23 01/08/23 trazodone 150 mg tablet 150 mg PO DAILY 01/08/23 01/08/23 Allergies Allergy/AdvReac Type Severity Reaction Status Date / Time aspirin Allergy Mild turn purple Verified 01/08/23 14:52 Review of Systems Review of Systems: Pertinent positives per HPI. Patient denies any fever, chills, rash, headache, visual changes, dizziness, cough, shortness of breath, chest pain, palpitations, nausea, vomiting, diarrhea, constipation, abdominal pain, or any urinary issues. [facility] Past Medical History Medical History Abnormal liver enzymes Alcohol abuse Asthma COVID-19 Musculoskeletal disorder Broken right middle finger ronnie placed Pneumonia Seizures Surgical History Surgical History No pertinent past surgical history Family History Family History Mother Family history non-contributory Social History Social History Smoking status: Current every day smoker Alcohol intake: current Substance use type: does not use Living arrangements: with family Gender identity (if verbalized by the patient): Male Sexual Orientation (if Verbalized by the Patient): Straight or Heterosexual Spiritual care concerns: No Comments At the time of my signature, I reviewed and agree with the nursing past medical, surgical, social, and family history. There is no relevant family history pertinent to the patient complaint. Exam Narrative: General: Well-developed, well nourished, in no apparent distress Head: Normocephalic, atraumatic Eyes: Pupils equally round and reactive to light bilaterally, EOM intact, sclera and conjunctive clear, no discharge, lids normal Ears: TMs intact and clear, ear canals clear, no drainage, grossly hearing normal. Nose: Nares patent, clear discharge, no inflammation, no sinus tenderness. Mouth: Oral pharynx red without lesions or masses, good dentition, MMM. Neck: Supple, trachea midline, mild enlargement of anterior cervical nodes, no thyroid masses or goiter palpable. Cardio: Regular rate and rhythm, s1 and s2 normal, no murmur appreciated. Resp: Clear to auscultation bilaterally, no rhonchi, rales, wheezing or rubs Course Course Emergency Course: Portions of this record may have been created with voice recognition software. Level of Care: Express Care Visit Vital Signs Vital signs: Vital Signs Temperature 36.6 C 01/08/23 15:03 Pulse Rate 62 01/08/23 15:03 Respiratory Rate 20 01/08/23 15:03 Blood Pressure 148/94 H 01/08/23 15:03 Pulse Oximetry 99 01/08/23 15:03 Oxygen Delivery Room Air 01/08/23 15:03 Temperature 36.6 C 01/08/23 15:03 Pulse Rate 62 01/08/23 15:03 Respiratory Rate 20 01/08/23 15:03 Blood Pr
== END 2023-01-08 15:20 | disposition home or self-care (01) ==
PROVIDERS: Emergency Provider Nurse Practitioner Family; PCP Internal Medicine
DX: J02.0 Streptococcal pharyngitis (principal); F17.200 Nicotine dependence, unspecified, uncomplicated; J45.909 Unspecified asthma, uncomplicated; G40.909 Epilepsy, unspecified, not intractable, without status epilepticus
CPT/HCPCS: 87880; 99213; G0463

== ENCOUNTER 2023-04-26 17:43 | Emergency (ER) | payer BC, SELFPAY ==
[2023-04-26 17:51] VITALS: BP 122/85; PULSE 70; RESP 16; TEMP 37.1; O2SAT 98
--- NOTE | 2023-04-26 18:32 | ED.URI ---
HPI - URI/Sore Throat General Chief Complaint: Upper Respiratory Infection Stated Complaint: Sinus Time Seen by Provider: 04/26/23 18:32 Source: patient Mode of arrival: ambulatory Limitations: no limitations History of Present Illness HPI Narrative: 38-year-old male presents with complaint of cough, nasal congestion, fatigue body aches, sore throat for 2 days. Afebrile. Patient's significant other sick with similar symptoms. Denies chest pain and shortness of breath. Took COVID test yesterday that was negative. Not taking any [id number] medications to treat his symptoms. Patient smokes half a pack of cigarettes a day. All systems reviewed and negative except as noted above. Related Data Home Medications Medication Instructions Recorded Confirmed cetirizine 10 mg tablet 1 tablet PO DAILY 02/13/22 04/26/23 fluticasone propionate 50 1 ea intranasal DAILY 02/13/22 04/26/23 mcg/actuation nasal spray,suspension gabapentin 300 mg capsule 1 cap PO DAILY 02/13/22 04/26/23 naltrexone 50 mg tablet 1 mg PO DAILY 02/13/22 04/26/23 valacyclovir 1 gram tablet 1,000 mg PO DIRECTED 04/14/22 04/26/23 sertraline 100 mg tablet 100 mg PO DAILY 01/08/23 04/26/23 trazodone 150 mg tablet 150 mg PO DAILY 01/08/23 04/26/23 budesonide-formoterol HFA 80 1 puff inhalation DAILY 04/26/23 04/26/23 mcg-4.5 mcg/actuation aerosol inhaler (Symbicort) varenicline 1 mg tablet 1 mg PO DAILY 04/26/23 04/26/23 Allergies Allergy/AdvReac Type Severity Reaction Status Date / Time aspirin Allergy Mild turn purple Verified 04/26/23 18:03 Review of Systems Review of Systems: CONSTITUTIONAL: Denies fever, chills, or sweats. reports fatigue. EYES: Denies visual changes, redness, or discharge. ENT: Reports rhinorrhea, congestion, sore throat. Denies otalgia. CARDIOVASCULAR: Denies chest pain, palpitations, or edema. RESPIRATORY: reports cough. Reports dyspnea. GASTROINTESTINAL: Denies abdominal pain, nausea, vomiting, or diarrhea. GENITOURINARY: Denies dysuria or hematuria. SKIN: Denies rash or itching. MUSCULOSKELETAL: Denies back pain, joint pain, or myalgia. NEUROLOGIC: Denies headache, numbness, or weakness. PSYCHIATRIC: Denies anxiety or depression. All other systems reviewed are negative, except as documented in HPI. [facility] Past Medical History Medical History Abnormal liver enzymes Alcohol abuse Asthma COVID-19 Musculoskeletal disorder Broken right middle finger ronnie placed Pneumonia Seizures Surgical History Surgical History No pertinent past surgical history Family History Family History Mother Family history non-contributory Social History Social History Smoking status: Current every day smoker Alcohol intake: current Substance use type: does not use Living arrangements: with family Gender identity (if verbalized by the patient): Male Sexual Orientation (if Verbalized by the Patient): Straight or Heterosexual Spiritual care concerns: No Comments At time of signature, agree with nursing past medical, surgical, social and family history. There is no relevant family history pertinent to the presenting complaint. Exam Narrative: GENERAL: This is a well-nourished, well-developed patient, in no apparent distress. HEAD: normocephalic, atraumatic. EYES: PERRL. Sclera clear/white. Vision is grossly intact. EARS: External ears normal, auditory canals clear and without drainage, TMs normal without perforation. Hearing grossly intact. NOSE: External nose normal with Erythema to bilateral nares, clear nasal drainage. THROAT: Mucous membranes moist, Erythema with clear nasal drainage. NECK: Neck supple, non-tender without lymphadenopathy, masses or thyro
== END 2023-04-26 18:44 | disposition home or self-care (01) ==
PROVIDERS: Emergency Provider Nurse Practitioner Family; PCP Internal Medicine
DX: J06.9 Acute upper respiratory infection, unspecified (principal); F17.200 Nicotine dependence, unspecified, uncomplicated; Z79.899 Other long term (current) drug therapy
CPT/HCPCS: 99213; G0463

== ENCOUNTER 2023-07-04 09:38 | Emergency (ER) | payer BC, SELFPAY ==
[2023-07-04 09:51] VITALS: BP 140/91; PULSE 83; RESP 16; TEMP 36.7; O2SAT 98
--- NOTE | 2023-07-04 10:00 | ED.URI ---
HPI - URI/Sore Throat General Chief Complaint: Upper Respiratory Infection Stated Complaint: Left Side Flank Pain/SOB Time Seen by Provider: 07/04/23 10:34 Source: patient and RN notes reviewed Mode of arrival: ambulatory Limitations: no limitations History of Present Illness HPI Narrative: 38-year-old male presents with concern for one-week history of cough. Reports he had a sudden anterior chest wall discomfort when he coughs hard. He reports it hurts worse with coughing and deep breathing. He denies any injury or trauma. He reports shortness of breath with exertion. He is a smoker. He reports history of asthma, reports he has been using his albuterol inhaler 3 to 4 times a day for the past week. MD elicited complaint: cough and sore throat Related Data Home Medications Medication Instructions Recorded Confirmed cetirizine 10 mg tablet 1 tablet PO DAILY 02/13/22 07/04/23 fluticasone propionate 50 1 ea intranasal DAILY 02/13/22 07/04/23 mcg/actuation nasal spray,suspension gabapentin 300 mg capsule 1 cap PO DAILY 02/13/22 07/04/23 naltrexone 50 mg tablet 1 mg PO DAILY 02/13/22 07/04/23 valacyclovir 1 gram tablet 1,000 mg PO DIRECTED 04/14/22 07/04/23 sertraline 100 mg tablet 100 mg PO DAILY 01/08/23 07/04/23 trazodone 150 mg tablet 150 mg PO DAILY 01/08/23 07/04/23 budesonide-formoterol HFA 80 1 puff inhalation DAILY 04/26/23 07/04/23 mcg-4.5 mcg/actuation aerosol inhaler (Symbicort) varenicline 1 mg tablet 1 mg PO DAILY 04/26/23 07/04/23 Allergies Allergy/AdvReac Type Severity Reaction Status Date / Time aspirin Allergy Mild turn purple Verified 04/26/23 18:03 Review of Systems Review of Systems: CONSTITUTIONAL: Denies malaise, chills, sweats, or fever. EYES: Denies visual changes, redness, or discharge. ENT: Reports rhinorrhea, congestion. Sinus pain, otalgia and sore throat. CARDIOVASCULAR: Denies chest pain, palpitations, or edema. RESPIRATORY: Reports cough, occasional exertional dyspnea. Reports chest wall pain with breathing and coughing GASTROINTESTINAL: Denies abdominal pain, nausea, vomiting, diarrhea SKIN: Denies rash or itching. MUSCULOSKELETAL: Denies myalgia. NEUROLOGIC: Denies headache. All systems reviewed & are unremarkable except as noted in HPI and below PMFSH Past Medical History Medical History Abnormal liver enzymes Alcohol abuse Asthma COVID-19 Musculoskeletal disorder Broken right middle finger ronnie placed Pneumonia Seizures Surgical History Surgical History No pertinent past surgical history Family History Family History Mother Family history non-contributory Social History Social History Smoking status: Current every day smoker Alcohol intake: current Substance use type: does not use Living arrangements: with family Gender identity (if verbalized by the patient): Male Sexual Orientation (if Verbalized by the Patient): Straight or Heterosexual Spiritual care concerns: No Comments At time of signature, agree with nursing past medical, surgical, social and family history. There is no relevant family history pertinent to the presenting complaint Exam Narrative: GENERAL: Well-appearing, well-nourished, and in no acute distress. HEAD: Normocephalic EYES: PERRLA, conjunctivae clear ENT: Nares clear. Mucous membranes moist. TM pearly call with sharp light reflex bilaterally; no tragal tenderness. Oropharynx not erythematous without lesions. Tonsils not enlarged and without exudate, no drooling, no hoarseness, no trismus, uvula midline. NECK: Supple. No lymphadenopathy CHEST: Scattered expiratory wheeze, otherwise clear to auscultation, breath sounds diminished in the left lower lobe. No rales, or stridor.
== END 2023-07-04 10:44 | disposition home or self-care (01) ==
PROVIDERS: Emergency Provider Nurse Practitioner; PCP Physician Assistant
DX: J06.9 Acute upper respiratory infection, unspecified (principal); R05.9 Cough, unspecified; J45.909 Unspecified asthma, uncomplicated; F17.200 Nicotine dependence, unspecified, uncomplicated; G40.909 Epilepsy, unspecified, not intractable, without status epilepticus; Z86.16 Personal history of COVID-19
CPT/HCPCS: 99213; G0463

== ENCOUNTER 2023-09-20 13:31 | Outpatient (CLI) | payer BC, SELFPAY ==
--- NOTE | ~2023-09-20 | MR_ITS ---
EXAMINATION: MR lumbar spine wo con DATE: 09/20/2023 14:30 INDICATION: Low back pain TECHNIQUE: Magnetic resonance imaging (MRI) of the lumbar spine was performed without intravenous con trast. Sequences included sagittal T2-weighted FSE, sagittal T2-weighted FS FSE, sagittal T1-weighted FSE, and axial T2-weighted FSE. COMPARISON: CT abdomen pelvis dated 05/31/2021 FINDINGS: Alignment is normal. Chronic mild anterior wedging 10% anterior vertebral body height loss at L1. Sma ll Schmorl's node along the inferior endplate of L1. Marrow signal is normal throughout. Disc heights are normal. The conus medullaris terminates at L1. There is normal signal in the caudal spinal cord. Mild subcutaneous edema posterior to the lumbar spine. Paravertebral soft tissues are otherwise unre markable. The following disc levels are specifically discussed: T12-L1: The disc does not extend beyond the endplate margin. There is mild bilateral facet joint oste oarthritis. There is no neural foraminal stenosis. There is no central canal stenosis. L1-L2: Disc is mildly bulging. There is mild bilateral facet joint osteoarthritis. There is minimal b ilateral neural foraminal stenosis. There is negligible central canal stenosis. L2-L3: Disc is mildly bulging. There is mild to moderate bilateral facet joint osteoarthritis. There is mild bilateral neural foraminal stenosis. There is negligible central canal stenosis. L3-L4: Disc is mildly bulging. There is moderate bilateral facet joint osteoarthritis. There is mild bilateral neural foraminal stenosis. There is negligible central canal stenosis. L4-L5: Disc is mildly bulging. There is mild to moderate left and moderate right facet joint osteoart hritis. There is mild bilateral neural foraminal stenosis. There is negligible central canal stenosis . L5-S1: Disc is mildly bulging. There is mild to moderate bilateral facet joint osteoarthritis. There is minimal bilateral neural foraminal stenosis. There is no central canal stenosis. IMPRESSION: 1. Minimal to mild lumbar spondylosis. Reviewed, dictated and finalized at location A. [employer]
== END 2023-09-20 13:32 | disposition home or self-care (01) ==
LOC: ANHIMG 13:32
PROVIDERS: PCP Physician Assistant; Visit Provider Physician Assistant
DX: M47.896 Other spondylosis, lumbar region (principal)
CPT/HCPCS: 72148

== ENCOUNTER 2023-09-25 10:08 | Emergency (ER) | payer BC, SELFPAY ==
[2023-09-25 10:23] VITALS: BP 162/95; PULSE 90; RESP 16; TEMP 36.5; O2SAT 97
--- NOTE | 2023-09-25 10:38 | ED.URI ---
HPI - URI/Sore Throat General Chief Complaint: Upper Respiratory Infection Stated Complaint: Sore Throat Time Seen by Provider: 09/25/23 10:38 Source: patient Mode of arrival: ambulatory Limitations: no limitations History of Present Illness HPI Narrative: 38-year-old male presents with complaint of fatigue, body aches, headache, sore throat, fever starting this morning. Patient reports strep exposure from his daughter. Denies nausea vomiting diarrhea. All systems reviewed and negative except as noted above. Related Data Home Medications Medication Instructions Recorded Confirmed cetirizine 10 mg tablet 1 tablet PO DAILY 02/13/22 07/04/23 fluticasone propionate 50 1 ea intranasal DAILY 02/13/22 07/04/23 mcg/actuation nasal spray,suspension gabapentin 300 mg capsule 1 cap PO DAILY 02/13/22 07/04/23 naltrexone 50 mg tablet 1 mg PO DAILY 02/13/22 07/04/23 valacyclovir 1 gram tablet 1,000 mg PO DIRECTED 04/14/22 07/04/23 sertraline 100 mg tablet 100 mg PO DAILY 01/08/23 07/04/23 trazodone 150 mg tablet 150 mg PO DAILY 01/08/23 07/04/23 budesonide-formoterol HFA 80 1 puff inhalation DAILY 04/26/23 07/04/23 mcg-4.5 mcg/actuation aerosol inhaler (Symbicort) varenicline 1 mg tablet 1 mg PO DAILY 04/26/23 07/04/23 Allergies Allergy/AdvReac Type Severity Reaction Status Date / Time aspirin Allergy Mild turn purple Verified 09/25/23 10:30 Review of Systems Review of Systems: CONSTITUTIONAL: Denies fever, Fatigue. Denies chills, or sweats. EYES: Denies visual changes, redness, or discharge. ENT: Denies rhinorrhea, congestion. Reports sore throat, or. Denies otalgia. CARDIOVASCULAR: Denies chest pain, palpitations, or edema. RESPIRATORY: Denies cough or dyspnea. GASTROINTESTINAL: Denies abdominal pain, nausea, vomiting, or diarrhea. GENITOURINARY: Denies dysuria or hematuria. SKIN: Denies rash or itching. MUSCULOSKELETAL: Denies back pain, joint pain. Reports myalgia. NEUROLOGIC: Denies headache, numbness, or weakness. PSYCHIATRIC: Denies anxiety or depression. All other systems reviewed are negative, except as documented in HPI. [facility] Past Medical History Medical History Abnormal liver enzymes Alcohol abuse Asthma COVID-19 Musculoskeletal disorder Broken right middle finger ronnie placed Pneumonia Seizures Surgical History Surgical History No pertinent past surgical history Family History Family History Mother Family history non-contributory Social History Social History Smoking status: Current every day smoker Alcohol intake: current Substance use type: does not use Living arrangements: with family Gender identity (if verbalized by the patient): Male Sexual Orientation (if Verbalized by the Patient): Straight or Heterosexual Spiritual care concerns: No Comments At time of signature, agree with nursing past medical, surgical, social and family history. There is no relevant family history pertinent to the presenting complaint. Exam Narrative: GENERAL: This is a well-nourished, well-developed patient, in no apparent distress. HEAD: normocephalic, atraumatic. EYES: PERRL. Sclera clear/white. Vision is grossly intact. EARS: External ears normal, auditory canals clear and without drainage, TMs normal without perforation. Hearing grossly intact. NOSE: External nose normal with no obvious nasal discharge, nares without redness, no rhinorrhea. THROAT: Mucous membranes moist, mild erythema to posterior pharynx without exudates NECK: Neck supple, non-tender without lymphadenopathy, masses or thyromegaly. CARDIOVASCULAR: Regular rate and rhythm without murmurs, gallops, or rubs. RESPIRATORY: Clear to auscultation. Breath sounds equal bilat
== END 2023-09-25 10:50 | disposition home or self-care (01) ==
PROVIDERS: Emergency Provider Nurse Practitioner Family; PCP Physician Assistant
DX: J02.9 Acute pharyngitis, unspecified (principal); Z20.818 Contact with and (suspected) exposure to other bacterial communicable diseases; F17.200 Nicotine dependence, unspecified, uncomplicated; J45.909 Unspecified asthma, uncomplicated; Z86.16 Personal history of COVID-19
CPT/HCPCS: 87081; 87880; 99213; G0463

== ENCOUNTER 2024-07-10 17:07 | Emergency (ER) | payer BC, SELFPAY ==
[2024-07-10 17:17] VITALS: BP 136/91; PULSE 71; RESP 19; TEMP 36.5; O2SAT 100
--- NOTE | 2024-07-10 17:29 | ED_ITS ---
HPI - URI/Sore Throat General Chief Complaint: Upper Respiratory Infection Stated Complaint: cough,bodyaches Time Seen by Provider: 07/10/24 17:54 39-year-old male with history of asthma, cigarette smoker presents with concern for 3 day history of cough, shortness of breath, chest congestion. Reports body aches, chills. He reports he is taking cough medicine at home without relief. Source: patient and RN notes reviewed Mode of arrival: ambulatory Limitations: no limitations History of Present Illness MD elicited complaint: cough Related Data Home Medications ?Medication ?Instructions ?Recorded ?Confirmed ?Last Taken ?Type cetirizine 10 mg tablet 1 tablet PO DAILY 02/13/22 07/10/24 Unknown History fluticasone propionate 50 1 ea intranasal DAILY 02/13/22 07/10/24 Unknown History mcg/actuation nasal spray,suspension gabapentin 300 mg capsule 1 cap PO DAILY 02/13/22 07/10/24 Unknown History naltrexone 50 mg tablet 1 mg PO DAILY 02/13/22 07/10/24 Unknown History valacyclovir 1 gram tablet 1,000 mg PO DIRECTED 04/14/22 07/10/24 Unknown History sertraline 100 mg tablet 100 mg PO DAILY 01/08/23 07/10/24 Unknown History trazodone 150 mg tablet 150 mg PO DAILY 01/08/23 07/10/24 Unknown History budesonide-formoterol HFA 80 1 puff inhalation DAILY 04/26/23 07/10/24 Unknown History mcg-4.5 mcg/actuation aerosol inhaler (Symbicort) varenicline 1 mg tablet 1 mg PO DAILY 04/26/23 07/10/24 Unknown History Allergies Allergy/AdvReac Type Severity Reaction Status Date / Time aspirin Allergy Mild turn purple Verified 07/10/24 17:23 Review of Systems Review of Systems: CONSTITUTIONAL: Reports malaise, chills, sweats EYES: Denies visual changes, redness, or discharge. ENT: Reports rhinorrhea, congestion. Denies sinus pain, otalgia and sore throat. CARDIOVASCULAR: Denies chest pain, palpitations, or edema. RESPIRATORY: Reports cough and chest congestion. Occasional dyspnea. GASTROINTESTINAL: Denies abdominal pain, nausea, vomiting, diarrhea SKIN: Denies rash or itching. MUSCULOSKELETAL: Denies myalgia. NEUROLOGIC: Denies headache. All systems reviewed & are unremarkable except as noted in HPI and below PMFSH Past Medical History Medical History Abnormal liver enzymes Alcohol abuse Asthma COVID-19 Musculoskeletal disorder Broken right middle finger ronnie placed Pneumonia Seizures Surgical History Surgical History No pertinent past surgical history Family History Family History Mother Family history non-contributory Social History Social History Smoking status: Current every day smoker Alcohol intake: current Substance use type: does not use Living arrangements: with family Gender identity (if verbalized by the patient): Male Sexual Orientation (if Verbalized by the Patient): Straight or Heterosexual Spiritual care concerns: No Comments At time of signature, agree with nursing past medical, surgical, social and family history. There is no relevant family history pertinent to the presenting complaint Exam Narrative: GENERAL: Well-appearing, well-nourished, and in no acute distress. HEAD: Normocephalic EYES: PERRLA, conjunctivae clear ENT: Nares clear. Mucous membranes moist. TM pearly call with dull light reflex bilaterally; no tragal tenderness. Oropharynx not erythematous without lesions. Tonsils not enlarged and without exudate, no drooling, no hoarseness, no trismus, uvula midline. NECK: Supple. No lymphadenopathy CHEST: Scattered wheeze, mild rhonchi with diminished left lower lobe. No rales, or stridor. No respiratory distress, speaks in full sentences. HEART: Regular rate and rhythm. No murmur heard. SKIN: Warm, dry, no rash. NEURO: Alert and oriented x3. PSYCH: Normal mood and affect Course Course Emergency Course: Patient is aware of diagnosis, understands and agrees to treatment plan. Anticipatory guidance given. Patient agrees to follow-up as directed and is aware of reasons to seek care at the emergency department. Portions of this record may have been created with voice recognition software Level of Care: Express Care Visit Vital Signs Vital signs: Vital Signs Temperature 97.7 F 12/11/24 17:17 Pulse Rate 71 07/10/24 17:17 Respiratory Rate 19 07/10/24 17:17 Blood Pressure 136/91 H 07/10/24 17:17 Pulse Oximetry 100 07/10/24 17:17 Oxygen Delivery Room Air 07/10/24 17:17 Temperature 97.7 F 07/10/24 17:17 Pulse Rate 71 07/10/24 17:17 Respiratory Rate 19 07/10/24 17:17 Blood Pressure 136/91 H 07/10/24 17:17 Pulse Oximetry 100 07/10/24 17:17 Oxygen Delivery Room Air 07/10/24 17:17 Reviewed. MDM - URI/Sore Throat MDM Narrative Medical decision making narrative: Differential diagnosis considered: Levy virus, strep pharyngitis, allergic rhinitis, upper respiratory tract infection, sinusitis, rhinosinusitis, nasopharyngitis. viral pharyngitis, otitis media, otitis externa, pneumonia, bronchitis, viral cough syndrome, viral syndrome, and influenza. Exam findings show no acute concerns or changes; patient is non-toxic appearing and is in no distress. Patient is appropriate for outpatient treatment and follow-up. Lab Data Attestation: I reviewed the patient's lab results. Critical Care Time Critical Care Time Critical Care Time: No Discharge Plan Discharge Clinical Impression: Upper respiratory infection with cough and congestion Patient Disposition: Home, Self-Care Condition: Stable Instructions: Antibiotic Form, Acute Cough (ED) Additional Instructions: Recommend antihistamine such as Benadryl at night time and Zyrtec or Camila during the day Continues to Use inhaler as needed for cough, wheezing, shortness of breath or chest tightness. Also, recommend symptomatic treatment includes: rest, fluids, and increase humidity of the air at home. Recommend Acetaminophen as directed on the bottle to reduce fever, pain, headache. Avoid smoking/second-hand smoke. Please schedule a follow-up visit with your personal physician for further evaluation and treatment within 3-5days. Including recheck and discussion of your blood pressure. If your symptoms persist, change or worsen significantly before you can contact your personal physician then please, without delay, go to the emergency department for further evaluation. Patient Language: Greenlandic Prescriptions: New azithromycin [Zithromax Z-Nathaniel] 250 mg tablet See Rx Instructions .ROUTE .COMPLEX Qty: 6 0RF Rx Instructions: take 500 mg today (day 1), then 250 mg for 4 days (days 2-5) prednisone 20 mg tablet 40 mg PO DAILY 5 Days Qty: 10 0RF No Action valacyclovir 1 gram tablet 1,000 mg PO DIRECTED sertraline 100 mg tablet 100 mg PO DAILY trazodone 150 mg tablet 150 mg PO DAILY varenicline 1 mg tablet 1 mg PO DAILY budesonide-formoterol [Symbicort] 80-4.5 mcg/actuation HFA aerosol inhaler 1 puff INHALATION DAILY cetirizine 10 mg tablet 1 tablet PO DAILY naltrexone 50 mg tablet 1 mg PO DAILY gabapentin 300 mg capsule 1 cap PO DAILY fluticasone propionate 50 mcg/actuation spray,suspension 1 ea INTRANASAL DAILY chlordiazepoxide HCl 25 mg capsule 25 mg PO Q8H PRN (Reason: alcohol withdrawal) Qty: 60 1RF albuterol sulfate [ProAir HFA] 90 mcg/actuation HFA aerosol inhaler 2 inh inhalation Q6H PRN (Reason: shortness of breath or wheezing) Qty: 8.5 3RF Follow-up/Referrals: Jose Rafael,CECELIA [place] [Primary Care Provider] - Time of Disposition: 18:03
[2024-07-10 18:42] LABS: EDINFLUASCREEN Negative (Negative); EDINFLUBSCREEN Negative (Negative)
[2024-07-11 09:50] LABS: EDCOVIDSCREEN Negative (Negative)
== END 2024-07-10 18:10 | disposition home or self-care (01) ==
PROVIDERS: Emergency Provider Nurse Practitioner; PCP Physician Assistant
DX: J06.9 Acute upper respiratory infection, unspecified (principal); F17.200 Nicotine dependence, unspecified, uncomplicated; J45.909 Unspecified asthma, uncomplicated; G40.909 Epilepsy, unspecified, not intractable, without status epilepticus; Z86.16 Personal history of COVID-19
CPT/HCPCS: 87426; 87804; 99213; G0463